=== PATIENT | male | born 1945 | race Caucasian/White ===

== ENCOUNTER 2020-12-31 06:05 | Day surgery (SDC) | payer MEDICARE ==
[2020-12-31] MEDS ORDERED: Lidocaine 2% Viscous Solution 15 ML Cup PO ONE (07:15)
[2021-01-01] MEDS: Lidocaine 2% Viscous Solution 15 ML Cup PO ONE ×2 (11:31→11:32)
--- NOTE | 2021-01-05 16:05 | OR ---
DATE OF PROCEDURE: 12/31/2020 SURGEON: Jed Guerrero MD PREOPERATIVE DIAGNOSIS: Dysphagia associated with probable gastroesophageal reflux disease. 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 OPERATIVE PROCEDURE: Esophagogastroduodenoscopy with: 1. Biopsy of esophagogastric junction (73127). 2. Dilation of esophagogastric junction (32547). ANESTHESIA: Topical. INDICATION FOR PROCEDURE: This is a 75-year-old male presenting with some history of intermittent dysphagia referable to the distal esophagus. In the past, he has undergone dilations of this area. The plan is to proceed with upper endoscopy with biopsies and/or dilation as indicated. The patient prefers to have no sedation, but topical lidocaine will be administered. Potential risks including bleeding and perforation were well aware to the patient and he wishes to proceed. DETAILS OF PROCEDURE: The patient was taken to the operating room and placed in a left lateral decubitus position. After receiving some topical lidocaine by both gargling and aerosolization in the preoperative area in the left lateral decubitus position, the upper GI endoscope was passed orally through the length of the esophagus, through a small area of stricturing in the esophagogastric junction, and from there through the pyloric channel, into the proximal duodenum. Findings included normal hypopharynx, larynx, upper esophageal sphincter, and esophageal body. At the EG junction, the patient was noted to have a moderate-sized hiatal hernia measuring around 5 cm. This was associated with narrowing of the esophagogastric junction to around 1 cm. With some minimal force, was able to be passed through the area of stricturing. The remainder of the gastric exam other than for the hiatal hernia was unremarkable as was the pyloric channel and proximal duodenum. At this point, the patient had multiple biopsies obtained from the area of ulceration around the esophagogastric junction. This included biopsies immediately at the anastomosis as well as some linear ulcers which were extending upward above the esophagogastric junction. There was some overt extension of the gastroesophageal junction mucosal line, i.e., upward extension of the columnar mucosa. There was no plaquing or gross suggestion of neoplasia. After the biopsies had been completed, a balloon was then centered across the anastomosis, inflated to 36-Mohawk size and held at level 3 for 30 seconds. The balloon was then deflated. There was a visible amount of dilation evident at this point and no evident complications and the procedure was then concluded. Plan will to have Dr. Barrientos stay on a full-liquid diet for 48 hours and then soft solids as tolerated thereafter. After discussion with Dr. Barrientos, the plan will be to proceed with initiation of proton pump inhibitor with b.i.d. dose x1 week and then daily thereafter and probably in a long-term manner. We will call Dr. Barrientos when the pathology report is available. Jed Guerrero MD /[id number]
== END 2020-12-31 07:42 | disposition home or self-care (01) ==
LOC: JP.SDS 06:05
PROVIDERS: ATTEND Surgery
DX: K22.2 Esophageal obstruction (principal); K44.9 Diaphragmatic hernia without obstruction or gangrene; K22.10 Ulcer of esophagus without bleeding; K21.9 Gastro-esophageal reflux disease without esophagitis; K22.8 Other specified diseases of esophagus
CPT/HCPCS: 88305; A9270-GY